=== PATIENT | female | born 1970 | race Caucasian/White ===

== ENCOUNTER 2017-09-25 14:09 | Emergency (ER) | payer MEDICAID ==
[2017-09-25 14:23] VITALS: BP 141/102
--- NOTE | 2017-09-25 15:43 | UC ---
UC General HPI - HPI Summary HPI Summary: 2 MONTHS OF WORSENING PAIN LEFT LOWER RIB CAGE AND ABDOMEN. NO FEVER, NAUSEA OR CHANGE IN BOWEL HABITS. NO H/O TRAUMA. NO CHANGE IN APPETITE. REPORTS SOME URINARY FREQUENCY BUT NO PAIN. FEELS TIRED AND OCCASIONALLY DIZZY. ALSO HAS PAIN MEDIAL KNEES. - History of Current Complaint Chief Complaint: UCAbdominalPain Stated Complaint: PERSISTANT ACHE ON RIB AND HIP Time Seen by Provider: 09/25/17 14:41 Hx Obtained From: Patient Onset/Duration: Gradual Onset, Lasting Weeks, Still Present Timing: Constant Onset Severity: Moderate Current Severity: Moderate Pain Intensity: 4 - Allergy/Home Medications Allergies/Adverse Reactions: Allergies Allergy/AdvReac Type Severity Reaction Status Date / Time No Known Allergies Allergy Verified 09/25/17 14:23 PMH/Surg Hx/FS Hx/Imm Hx Psychological History: Depression Other History Of: Negative For: Anticoagulant Therapy - Surgical History Surgical History: Yes Surgery Procedure, Year, and Place: hysterrectomy 2009 - Family History Family History: THYROID DISORDER - Social History Alcohol Use: None Substance Use Type: Prescribed Smoking Status (MU): Light Every Day Tobacco Smoker Review of Systems Constitutional: Negative Skin: Negative Respiratory: Negative Cardiovascular: Negative Gastrointestinal: Negative Musculoskeletal: Myalgia Neurological: Headache All Other Systems Reviewed And Are Negative: Yes Physical Exam Triage Information Reviewed: Yes Appearance: Well-Appearing, No Pain Distress, Well-Nourished Vital Signs: Initial Vital Signs Temp 96.9 F 09/25/17 14:17 Pulse 94 09/25/17 14:17 Resp 18 09/25/17 14:17 BP 141/102 09/25/17 14:17 Pulse Ox 97 09/25/17 14:17 Vital Signs Reviewed: Yes Eyes: Positive: Conjunctiva Clear ENT: Positive: Hearing grossly normal Neck: Positive: Supple Respiratory: Positive: No respiratory distress, No accessory muscle use Cardiovascular: Positive: Pulses Normal Abdomen Description: Positive: Soft, Other: - TTP DIFFUSELY, NO REBOUND OR RIGIDITY. SEVERAL SMALL FIBROUS NODULES PALPATED SUBCUTANEOUSLY LEFT ABDOMEN. Negative: CVA Tenderness (R), CVA Tenderness (L), Distended, Guarding Bowel Sounds: Positive: Present Musculoskeletal: Positive: No Edema, Other: - PT REPORTS EXQUISITE PAIN WITH PALPATION BILATERAL COSTAL MARGINS L>R. PAIN MEDIAL KNEES Neurological: Positive: Alert Psychological: Positive: Age Appropriate Behavior Skin: Negative: rashes Course/Dx - Differential Dx - Multi-Symptom Provider Diagnoses: MYOFASCIAL PAIN Discharge - Discharge Plan Condition: Stable Disposition: HOME Patient Education Materials: Musculoskeletal Pain (ED) Referrals: Luis Rosado MD [Primary Care Provider] - 2 Weeks Additional Instructions: UNCLEAR ETIOLOGY OF YOUR PAIN. KEEP YOUR PCP FOLLOW-UP APPT IN 2 WEEKS. GO TO THE ER WITHOUT FAIL IF YOU DEVELOP WORSENING PAIN, FEVER, JENKINS, NAUSEA OR ANY OTHER CONCERNING SYMPTOMS.
== END 2017-09-25 15:45 | disposition home or self-care (01) ==
LOC: UCEAST 14:09
DX: M79.1 Myalgia (principal); F32.9 Major depressive disorder, single episode, unspecified; Z72.0 Tobacco use
CPT/HCPCS: 81003; 99201; G0463